=== PATIENT | male | born 1930 | race Caucasian/White ===

== ENCOUNTER 2018-05-18 01:50 | Emergency (ER) | payer OTHER, MEDICARE ==
[2018-05-18 03:48] LABS: ADD MAN DIFF? NO
[2018-05-18 04:07] LABS: BASOPHILS % 0.5 % (0.0-2.0); EOSINOPHILS # 0.7 10^3/ul (0.0-0.5); EOSINOPHILS % 9.8 % (0.0-7.0); HEMATOCRIT 37.3 % (42.0-52.0); HEMOGLOBIN 11.7 g/dl (14.0-18.0); LYMPHOCYTES # 1.4 10^3/ul (0.8-2.9); LYMPHOCYTES % 18.7 % (15.0-51.0); MEAN CORPUSCULAR HEMOGLOBIN 27.9 pg (29.0-33.0); MEAN CORPUSCULAR HGB CONC 31.4 g/dl (32.0-37.0); MEAN CORPUSCULAR VOLUME 88.8 fl (82.0-101.0); MEAN PLATELET VOLUME 9.2 fl (7.4-10.4); MONOCYTE # 0.7 10^3/ul (0.3-0.9); MONOCYTES % 9.6 % (0.0-11.0); NEUTROPHIL # 4.5 10^3/ul (1.6-7.5); PLATELET COUNT 199 10^3/UL (140-415); RED CELL DISTRIBUTION WIDTH 13.2 % (11.5-14.5)
[2018-05-18 04:07] LABS: WHITE BLOOD COUNT 7.3 10^3/ul (4.8-10.8)
[2018-05-18 04:10] LABS: INR 0.92; PROTIME 12.4 Sec (11.9-14.9)
[2018-05-18 04:11] LABS: PARTIAL THROMBOPLASTIN TIME 30.2 Sec (25.0-35.0)
[2018-05-18 04:15] LABS: ANION GAP 13 (8-16); BLOOD UREA NITROGEN 18 mg/dl (7-20); CALCIUM 9.1 mg/dl (8.4-10.2); CARBON DIOXIDE 31 mmol/L (21-31); CHLORIDE 101 mmol/L (97-110); CREATININE 1.42 mg/dl (0.61-1.24); GLUCOSE 106 mg/dl (70-220); POTASSIUM 4.5 mmol/L (3.5-5.1); SODIUM 140 mmol/L (135-144)
[2018-05-18 04:27] LABS: TROPONIN-I < 0.012 ng/ml (0.000-0.120)
== END 2018-05-18 11:30 | disposition short-term general hospital (02) ==
LOC: E/R 11:30
DX: S81.802A Unspecified open wound, left lower leg, initial encounter (principal); R55 Syncope and collapse; E11.9 Type 2 diabetes mellitus without complications; W18.39XA Other fall on same level, initial encounter; Y92.9 Unspecified place or not applicable; Z79.01 Long term (current) use of anticoagulants; Z79.4 Long term (current) use of insulin; Z87.891 Personal history of nicotine dependence
CPT/HCPCS: 36415; 70450; 71045; 73130-RT; 80048; 82962; 84484; 85025; 85610; 85730; 93005; 99285-25

== ENCOUNTER 2018-08-23 12:16 | Emergency (ER) | payer SELFPAY, OTHER | END 2018-08-23 17:13 | disposition left against medical advice (07) | LOC: E/R 12:16 | DX: Z53.21 Procedure and treatment not carried out due to patient leaving prior to being seen by health care provider (principal) ==

== ENCOUNTER 2019-01-13 14:02 | Emergency (ER) | payer MEDICARE, OTHER ==
[2019-01-13] MEDS: LACTATED RINGER'S 1,000 ML IV (15:15)
[2019-01-13] MEDS: SOD CHLORIDE 0.9% 1,000 ML IV (15:16)
[2019-01-13 15:18] LABS: ADD MAN DIFF? NO
[2019-01-13 15:22] LABS: BASOPHIL # 0.1 10^3/ul (0.0-0.1); BASOPHILS % 0.7 % (0.0-2.0); EOSINOPHILS # 0.5 10^3/ul (0.0-0.5); EOSINOPHILS % 7.2 % (0.0-7.0); HEMOGLOBIN 10.3 g/dl (14.0-18.0); LYMPHOCYTES # 1.1 10^3/ul (0.8-2.9); LYMPHOCYTES % 15.8 % (15.0-51.0); MEAN CORPUSCULAR HEMOGLOBIN 27.8 pg (29.0-33.0); MEAN CORPUSCULAR HGB CONC 31.2 g/dl (32.0-37.0); MEAN CORPUSCULAR VOLUME 89.2 fl (82.0-101.0); MONOCYTE # 0.7 10^3/ul (0.3-0.9); MONOCYTES % 9.3 % (0.0-11.0); NEUTROPHIL # 4.8 10^3/ul (1.6-7.5); NEUTROPHILS % 66.7 % (39.0-77.0); PLATELET COUNT 216 10^3/UL (140-415); RED CELL DISTRIBUTION WIDTH 13.2 % (11.5-14.5)
[2019-01-13 15:22] LABS: WHITE BLOOD COUNT 7.2 10^3/ul (4.8-10.8)
[2019-01-13 15:49] LABS: ALANINE AMINOTRANSFERASE 12 IU/L (13-69); ALBUMIN 3.7 g/dl (3.3-4.9); ALBUMIN/GLOBULIN RATIO 1.12; ALKALINE PHOSPHATASE 66 IU/L (42-121); ANION GAP 8 (5-13); ASPARTATE AMINO TRANSFERASE 16 IU/L (15-46); BILIRUBIN,INDIRECT 0.2 mg/dl (0-1.1); BILIRUBIN,TOTAL 0.2 mg/dl (0.2-1.3); BLOOD UREA NITROGEN 19 mg/dl (7-20); CALCIUM 8.9 mg/dl (8.4-10.2); CARBON DIOXIDE 28 mmol/L (21-31); CHLORIDE 104 mmol/L (97-110); CREATININE 1.93 mg/dl (0.61-1.24); GLUCOSE 97 mg/dl (70-220); LIPASE 69 U/L (23-300); POTASSIUM 3.7 mmol/L (3.5-5.1); SODIUM 140 mmol/L (135-144)
[2019-01-13 15:52] LABS: ETHANOL < 10.0 mg/dl (0-0)
[2019-01-13 16:00] LABS: TROPONIN-I < 0.012 ng/ml (0.000-0.120)
== END 2019-01-13 17:00 | disposition home or self-care (01) ==
LOC: E/R 14:02
DX: R55 Syncope and collapse (principal); E86.0 Dehydration; I10 Essential (primary) hypertension; F17.210 Nicotine dependence, cigarettes, uncomplicated; E11.9 Type 2 diabetes mellitus without complications; Z79.01 Long term (current) use of anticoagulants
CPT/HCPCS: 36415; 71045; 80053; 80307; 82962; 83690; 84484; 85025; 93005; 96360; 96361; 99285-25

== ENCOUNTER 2019-01-31 01:50 | Observation (INO) | payer MEDICARE, OTHER ==
[2019-01-31 02:47] LABS: ADD MAN DIFF? NO
[2019-01-31 02:49] LABS: WHITE BLOOD COUNT 9.6 10^3/ul (4.8-10.8)
[2019-01-31 02:49] LABS: BASOPHILS % 0.4 % (0.0-2.0); EOSINOPHILS # 0.4 10^3/ul (0.0-0.5); EOSINOPHILS % 3.7 % (0.0-7.0); HEMATOCRIT 37.2 % (42.0-52.0); HEMOGLOBIN 11.4 g/dl (14.0-18.0); LYMPHOCYTES # 0.7 10^3/ul (0.8-2.9); LYMPHOCYTES % 7.4 % (15.0-51.0); MEAN CORPUSCULAR HEMOGLOBIN 27.9 pg (29.0-33.0); MEAN CORPUSCULAR HGB CONC 30.6 g/dl (32.0-37.0); MEAN CORPUSCULAR VOLUME 91.2 fl (82.0-101.0); MEAN PLATELET VOLUME 8.9 fl (7.4-10.4); NEUTROPHIL # 7.5 10^3/ul (1.6-7.5); NEUTROPHILS % 78.3 % (39.0-77.0); PLATELET COUNT 238 10^3/UL (140-415); RED BLOOD COUNT 4.08 10^6/ul (4.70-6.10); RED CELL DISTRIBUTION WIDTH 13.4 % (11.5-14.5)
[2019-01-31] MEDS: ONDANSETRON 4 MG INJ IV (02:49)
[2019-01-31] MEDS: morphine 4 MG/ML VIAL IV (02:49)
[2019-01-31] MEDS: SOD CHLORIDE 0.9% 1,000 ML IV (02:50)
[2019-01-31 03:06] LABS: ALANINE AMINOTRANSFERASE 13 IU/L (13-69); ALBUMIN 4.2 g/dl (3.3-4.9); ALBUMIN/GLOBULIN RATIO 1.16; ALKALINE PHOSPHATASE 73 IU/L (42-121); ANION GAP 9 (5-13); ASPARTATE AMINO TRANSFERASE 18 IU/L (15-46); BILIRUBIN,INDIRECT 0.4 mg/dl (0-1.1); BILIRUBIN,TOTAL 0.4 mg/dl (0.2-1.3); BLOOD UREA NITROGEN 23 mg/dl (7-20); CALCIUM 9.5 mg/dl (8.4-10.2); CARBON DIOXIDE 26 mmol/L (21-31); CHLORIDE 107 mmol/L (97-110); GLUCOSE 129 mg/dl (70-220); LIPASE 59 U/L (23-300); POTASSIUM 4.2 mmol/L (3.5-5.1); SODIUM 142 mmol/L (135-144); TOTAL PROTEIN 7.8 g/dl (6.1-8.1)
[2019-01-31 03:18] LABS: TROPONIN-I < 0.012 ng/ml (0.000-0.120)
[2019-01-31] MEDS ORDERED: MAGNESIUM CITRATE 300 ML BTL PO (14:30)
[2019-01-31] MEDS: MAGNESIUM CITRATE 300 ML BTL PO (14:33)
[2019-01-31] MEDS ORDERED: GLUCOSE GEL 15 GRAM TUBE PO ×2 (20:30)
[2019-01-31] MEDS ORDERED: GLUCAGON 1 MG INJ IM (20:30)
[2019-01-31] MEDS ORDERED: DEXTROSE 50% 50 ML SYRINGE IV ×2 (20:30)
[2019-01-31] MEDS ORDERED: GLUCOSE GEL 15 GRAM TUBE BUCCAL (20:30)
[2019-01-31] MEDS: AMITRIPTYLINE 50 MG TAB PO (20:55)
[2019-01-31] MEDS: LUBIPROSTONE 24 MCG CAP PO (20:55)
[2019-01-31] MEDS: ATORVASTATIN 10 MG TAB PO (20:56)
[2019-01-31] MEDS: GABAPENTIN 100 MG CAP PO (20:56)
[2019-01-31] MEDS: ACCU-CHEK XX (21:02)
[2019-01-31] MEDS: PRIMIDONE 50 MG TAB PO (21:37)
[2019-01-31] MEDS: CILOSTAZOL 100 MG TAB PO (21:37)
[2019-01-31] MEDS: METOCLOPRAMIDE 10 MG INJ IV (21:37)
[2019-02-01] MEDS: METOCLOPRAMIDE 10 MG INJ IV ×2 (06:19→13:46)
[2019-02-01] MEDS: PANTOPRAZOLE (EC) 40 MG TAB PO (06:19)
[2019-02-01 06:20] LABS: ANION GAP 6 (5-13); BLOOD UREA NITROGEN 23 mg/dl (7-20); CALCIUM 8.6 mg/dl (8.4-10.2); CARBON DIOXIDE 30 mmol/L (21-31); CHLORIDE 106 mmol/L (97-110); CREATININE 1.42 mg/dl (0.61-1.24); GLUCOSE 104 mg/dl (70-220); POTASSIUM 4.4 mmol/L (3.5-5.1); SODIUM 142 mmol/L (135-144)
[2019-02-01] MEDS ORDERED: metFORMIN 500 MG TAB PO ×2 (07:50)
[2019-02-01] MEDS: ACCU-CHEK XX ×2 (08:17→12:34)
[2019-02-01] MEDS: GABAPENTIN 300 MG CAP PO ×2 (08:18→12:33)
[2019-02-01] MEDS: LUBIPROSTONE 24 MCG CAP PO (08:18)
[2019-02-01] MEDS: DULOXETINE 30 MG CAP DR PO (08:18)
[2019-02-01] MEDS: RISPERIDONE 0.25 MG TAB PO (08:18)
[2019-02-01] MEDS: POTASSIUM CHLORIDE (SR) 10 MEQ TAB PO (08:18)
[2019-02-01] MEDS: CLOPIDOGREL 75 MG TAB PO (08:18)
[2019-02-01] MEDS: FERROUS SULFATE (EC) 325 MG TAB PO (08:19)
[2019-02-01] MEDS: FUROSEMIDE 20 MG TAB PO (08:19)
[2019-02-01] MEDS: LOSARTAN 50 MG TAB PO (08:19)
[2019-02-01] MEDS: CILOSTAZOL 100 MG TAB PO (08:19)
[2019-02-01] MEDS: FOLIC ACID 1 MG TAB PO (08:19)
[2019-02-01] MEDS ORDERED: DULOXETINE 30 MG CAP DR PO (09:00)
[2019-02-01] MEDS ORDERED: NON-FORMULARY/PATIENT OWN MED (Omeprazole* 40 MG) PO (09:00)
[2019-02-01] MEDS ORDERED: FUROSEMIDE 20 MG TAB PO (09:00)
[2019-02-01] MEDS ORDERED: LOSARTAN 50 MG TAB PO (09:00)
[2019-02-01] MEDS ORDERED: AMITRIPTYLINE 50 MG TAB PO (21:00)
[2019-02-01] MEDS ORDERED: ROSUVASTATIN CALCIUM 40 MG TABLET PO (21:00)
== END 2019-02-01 17:00 | disposition home or self-care (01) ==
LOC: E/R 01:50 → MS1 05:35
DX: R11.2 Nausea with vomiting, unspecified (principal); R10.9 Unspecified abdominal pain; K40.20 Bilateral inguinal hernia, without obstruction or gangrene, not specified as recurrent; E78.5 Hyperlipidemia, unspecified; E11.9 Type 2 diabetes mellitus without complications; I25.10 Atherosclerotic heart disease of native coronary artery without angina pectoris; Z95.1 Presence of aortocoronary bypass graft; K59.00 Constipation, unspecified; I11.0 Hypertensive heart disease with heart failure; I50.9 Heart failure, unspecified; F17.210 Nicotine dependence, cigarettes, uncomplicated; Z79.84 Long term (current) use of oral hypoglycemic drugs
CPT/HCPCS: 71045; 74176; 80048; 80053; 82962; 83036; 83690; 84484; 85025; 93005